=== PATIENT | male | born 1965 | race Caucasian/White ===

== ENCOUNTER → 2018-08-20 | Outpatient (CLI) | payer OTHER | END | disposition home or self-care (01) | LOC: CVU 09:57 | PROVIDERS: ATTEND Internal Medicine Cardiovascular Disease | DX: I35.8 Other nonrheumatic aortic valve disorders (principal); I65.23 Occlusion and stenosis of bilateral carotid arteries; I51.7 Cardiomegaly; I10 Essential (primary) hypertension; I67.9 Cerebrovascular disease, unspecified; R07.89 Other chest pain; I49.3 Ventricular premature depolarization | CPT/HCPCS: 93306; 93880 ==